=== PATIENT | male | born 1955 | race Caucasian/White ===

== ENCOUNTER → 2017-10-16 | Outpatient (CLI) | payer MEDICARE ==
--- NOTE | 2017-10-16 13:23 | XR ---
EXAMINATION TYPE: XR shoulder complete LT DATE OF EXAM: 10/16/2017 CLINICAL HISTORY: pain COMPARISON: NONE TECHNIQUE: Three views of the left shoulder are obtained. FINDINGS: There is no acute fracture/dislocation evident. The acromioclavicular and glenohumeral paul int spaces appear mildly narrowed. The visualized ribs are intact and unremarkable. IMPRESSION: 1. There is no acute fracture or dislocation. ICD 10 NO FRACTURE, INITIAL EVALUATION
--- NOTE | 2017-10-16 13:54 | XR ---
Cervical spine HISTORY: Pain 5 views of the cervical spine and 6 images There is multilevel facet arthropathy. Cervical vertebral bodies show preserved height. Anterolisthes is grade 1 C2-3, C4-5, retrolisthesis grade 1 C5-6. Spondylosis is greatest at C4-5 and C5-6 with ass ociated loss of disc height greatest at C5-6, C6-7 and C7-T1. Prevertebral soft tissues are normal. O blique views show foraminal encroachment at multiple levels bilaterally due to lateral extension of e ndplates. IMPRESSION: Degenerative disc disease, facet arthropathy, multilevel foraminal encroachment, cervical MRI may be of benefit.
== END | disposition home or self-care (01) ==
LOC: RADXRMAIN 12:37
PROVIDERS: ATTEND Family Medicine
DX: M50.30 Other cervical disc degeneration, unspecified cervical region (principal); M46.82 Other specified inflammatory spondylopathies, cervical region
CPT/HCPCS: 72050

== ENCOUNTER → 2017-12-23 | Outpatient (CLI) | payer MEDICARE ==
--- NOTE | 2017-12-23 08:00 | XR ---
EXAMINATION TYPE: XR chest 2V DATE OF EXAM: 12/23/2017 COMPARISON: CT chest June 27, 2017 HISTORY: Presurgical study TECHNIQUE: Frontal and lateral views of the chest are obtained. FINDINGS: There is no focal air space opacity, pleural effusion, or pneumothorax seen. Underlying em physematous change is present seen better on CT. The cardiac silhouette size is within normal limits. Multilevel spurring in thoracic spine is redemonstrated. Metallic anchors right humeral head level a re again seen IMPRESSION: Chronic emphysematous change without acute pulmonary process.
[2017-12-23 08:03] LABS: Basophils # (A) 0.1 k/uL (0-0.2); Basophils % (A) 1 %; Eosinophils # (A) 0.3 k/uL (0-0.7); Eosinophils % (A) 4 %; HCT 44.7 % (39.0-53.0); HGB 15.5 gm/dL (13.0-17.5); Lymphocytes # (A) 1.9 k/uL (1.0-4.8); Lymphocytes % (A) 29 %; MCH 30.6 pg (25.0-35.0); MCHC 34.6 g/dL (31.0-37.0); MCV 88.5 fL (80.0-100.0); Mean Platelet Volume 7.1; Monocytes # (A) 0.4 k/uL (0-1.0); Monocytes % (A) 7 %; Neutrophils # (A) 3.7 k/uL (1.3-7.7); Neutrophils % (A) 57 %; Platelet Count 272 k/uL (150-450); RBC 5.05 m/uL (4.30-5.90); RDW 13.1 % (11.5-15.5); WBC 6.5 k/uL (3.8-10.6)
[2017-12-23 08:09] LABS: Appearance,Urine Clear (Clear); Bilirubin,Urine Negative (Negative); Blood,Urine Negative (Negative); Color,Urine Yellow; Glucose,Urine (UA) Negative (Negative); Ketones,Urine Negative (Negative); Leukocyte Esterase,Urine Negative (Negative); Nitrite,Urine Negative (Negative); PH, Urine 5.5 (5.0-8.0); Protein,Urine Negative (Negative); Specific Gravity,Urine 1.018 (1.001-1.035); Urobilinogen,Urine <2.0 mg/dL (<2.0)
[2017-12-23 08:12] LABS: Partial Thromboplastin Time 23.5 sec (22.0-30.0); Prothrombin Time 9.8 sec (9.0-12.0)
[2017-12-23 08:32] LABS: Anion Gap 12 mmol/L; Blood Urea Nitrogen 17 mg/dL (9-20); Calcium 9.5 mg/dL (8.4-10.2); Carbon Dioxide 24 mmol/L (22-30); Chloride 104 mmol/L (98-107); Glucose 112 mg/dL (74-99); Potassium 4.4 mmol/L (3.5-5.1); Sodium 140 mmol/L (137-145)
== END | disposition home or self-care (01) ==
LOC: LABPAT 07:15
PROVIDERS: ATTEND Orthopaedic Surgery Orthopaedic Surgery of the Spine
DX: Z01.818 Encounter for other preprocedural examination (principal); M48.02 Spinal stenosis, cervical region; Z79.01 Long term (current) use of anticoagulants; Z01.812 Encounter for preprocedural laboratory examination
CPT/HCPCS: 36415; 71046; 80048; 81003; 85025; 85610; 85730; 86850; 86900; 86901

== ENCOUNTER 2017-12-31 10:32 | Inpatient (IN) | payer MEDICARE ==
[2017-12-23 11:11] VITALS: BMI 27.7
[~2017-12-31 10:32] MED LIST: BACITRACIN 50,000 UNIT, POLYMYXIN B 500,000 UNIT in SODIUM CHLORIDE 0.9% IRRIGATIO 1,00... IRRIGATION ONE; LIDOCAINE 1% 20 ML VIAL (10MG/ML) FOR IV START INTRADERMA PRN; ONDANSETRON ODT 4 MG TAB PO ONE; ceFAZolin IN SWFI 2 GM/20 ML SYRINGE IVP ONE
[2017-12-31 11:11] VITALS: RESP 16
[2017-12-31] MEDS ORDERED: ONDANSETRON 4 MG/2 ML VIAL IVP ONE (11:11)
[2017-12-31] MEDS: LACTATED RINGERS 1,000 ML IV SCH (11:11)
[2017-12-31] MEDS ORDERED: MIDAZOLAM 2 MG/2 ML VIAL ONE ×2 (12:20→13:09)
[2017-12-31] MEDS ORDERED: MIDAZOLAM 2 MG/2 ML VIAL IV ONE (12:23)
[2017-12-31] MEDS ORDERED: PROPOFOL 10 MG/ML 20 ML VIAL IV ONE (13:09)
[2017-12-31] MEDS ORDERED: fentaNYL (PF) 50 MCG/ML 2 ML AMP ONE (13:09)
[2017-12-31] MEDS ORDERED: MORPHINE SULFATE 10 MG/ML SYRINGE ONE (13:09)
[2017-12-31] MEDS ORDERED: LIDOCAINE 1% INJ 10MG/ML (20 ML MDV) ONE (13:09)
[2017-12-31] MEDS ORDERED: SUCCINYLCHOLINE CHLORIDE 100 MG/5 ML SYR IV ONE (13:09)
[2017-12-31] MEDS ORDERED: THROMBIN (BOVINE) 5,000 UNIT VIAL TOPICAL ONE (13:40)
[2017-12-31] MEDS ORDERED: GELATIN SPONGE,ABSORB (LARGE) 1 EACH SPONGE MISCELLANE ONE (13:40)
[2017-12-31] MEDS ORDERED: BUPIVACAINE-EPI 0.5%-1:200,000 10 ML VIAL SQ ONE ×2 (13:40→14:58)
[2017-12-31] MEDS ORDERED: LACTATED RINGERS 1,000 ML IV ONE (14:03)
--- NOTE | 2017-12-31 15:02 | XR ---
EXAMINATION TYPE: XR cervical spine 1V DATE OF EXAM: 12/31/2017 COMPARISON: NONE HISTORY: Intraoperative localization. TECHNIQUE: Crosstable lateral portable view FINDINGS: Localization device is noted anteriorly at the C5-6 level.
[2017-12-31] MEDS ORDERED: MAGNESIUM HYDROXIDE 2,400 MG/10 ML CUP PO PRN (15:15)
[2017-12-31] MEDS ORDERED: MORPHINE SULFATE 4 MG/ML SYRINGE IVP PRN (15:15)
[2017-12-31] MEDS ORDERED: DIAZEPAM 5 MG TAB PO PRN (15:15)
[2017-12-31] MEDS ORDERED: ONDANSETRON 4 MG/2 ML VIAL IVP PRN (15:15)
[2017-12-31] MEDS ORDERED: BENZOCAINE/MENTHOL LOZENG 1 EACH LOZENGE MUCOUS MEM PRN (15:15)
--- NOTE | 2017-12-31 15:15 | XR ---
EXAMINATION TYPE: XR cervical spine 1V DATE OF EXAM: 12/31/2017 COMPARISON: NONE HISTORY: ANTERIOR CERVICAL FUSION TECHNIQUE: Crosstable lateral portable view obtained. FINDINGS: Anterior fixation plate partially imaged noted at the C5-6 level. Alignment appears to be a natomic.
--- NOTE | 2017-12-31 15:22 | P.OP ---
Date of Procedure: 12/31/17 Preoperative Diagnosis: Cervical myelopathy, cervical stenosis C5 6 C6 7, herniated nucleus pulposis C5 6 C6 7, upper extremity radiculopathy, left upper extremity weakness Postoperative Diagnosis: Same Anesthesia: GETA Pathology: none sent Condition: stable Disposition: PACU Description of Procedure: BRIEF OPERATIVE NOTE Preoperative Diagnosis: Cervical myelopathy, cervical stenosis C5 6 C6 7, degenerative disc disease, upper extremity radiculopathy, left upper extremity weakness Postoperative Diagnosis: Same Procedure: Anterior cervical decompression with discectomy and fusion C5 6 C6 7 Placement of interbody graft C5 6 C6 7 Application of anterior cervical plate C5 6 7 Surgeon: Dr. Rodriguez Ordained Minister: John PACK who is present throughout the entire the case persistence during positioning, dissection, exposure, visualization, and all crucial elements of the case as well as closure. Anesthesia: General anesthesia per Dr. Dominguez Estimated blood loss: Approximately 200 mL Complications: None apparent Components implanted: K2M Valeria ridge anterior cervical plate system with screws, Vikos interbody allograft bone graft with 1 mL of DBX bone putty to the bone graft Disposition: To recovery room in good stable condition. OPERATIVE INDICATIONS The patient has had long-standing issues in their neck and upper extremities. His found have severe stenosis at his cervical spine particularly at C5 6 and C6 7 with severe disc degeneration. He was having evidence of early cervical myelopathy and weakness at his left upper extremity with radiculopathy the correlated well with his neck and upper extremity symptoms. The patient has been through conservative treatment. He is not having any benefit despite conservative care. We discussed various treatment options including surgery, and the patient wishes to proceed with surgery We discussed the risk, patient's alternatives and benefits of surgery including but not limited to, risk of bleeding risk of infection, risk of need for further surgery, risk of decreased , loss of motion, muscle function, malunion nonunion, hardware failure, nerve damage, paralysis, heart attack, and . OPERATIVE SUMMARY After discussing all the risks, patient alternatives and benefits at length, the patient elected to proceed with surgical intervention, signed informed consent, and presented for their procedure. The patient was seen and examined in the preoperative holding area and the surgical site was marked. The patient was given antibiotics and brought to the operating room. The patient was positioned on the operating room table in a supine position being careful to pad any bony prominences and pressure points. The patient was sedated and intubated by anesthesia in standard fashion. Once the airway and C- spine were stabilized the patient's arms were padded and tucked at her side, with her shoulders gently taped. The head was placed in a donut pad with the neck in good neutral alignment and position. We were careful to maintain the patient's cervical spine and good neutral alignment and position throughout. The patient was prepped and draped in a normal standard fashion. An appropriate timeout and keystone protocol performed. We were able to proceed with the surgery. The local wound area was infiltrated with local anesthetic. An incision was made transversely approximately 2-1/2 cm over the appropriate levels at C6. Dissection was taken down subcutaneously to the level of the platysma which was split in line with its fibers. Dissection was taken with a carotid approach, with the trachea and esophagus medial and the carotid sheath laterally. We dissected down to the anterior surface of the vertebral bodies of C5 6 and 7. Intraoperative x-ray was taken which showed a marker at the appropriate level of C5 6 and 7. With the appropriate level positively confirmed, we were able to proceed with discectomy at the appropriate levels. All of the operative levels were exposed appropriately. There are very large anterior cervical osteophytes at C5 6 and C6 7. These were removed accommodation of rongeurs and high-speed bur. The patient had all their twitches back, and there was no evidence of recurrent laryngeal issue. The wound was copiously irrigated and suctioned dry as had been done periodically throughout the case. At the appropriate level/levels, starting at C5 6 and then moving to C6 7 I established an annulotomy with an 11 blade scalpel. A discectomy was performed with a combination of pituitary rongeurs, curettes, a high-speed bur, and Kerrison rongeurs. The posterior longitudinal ligament was taken down as were any posterior osteophytes. Note was made of significant central and bilateral foraminal stenosis which was remedied with the decompression This gave good central and bilateral foraminal decompression. There is no evidence of any dural tear or leak. The endplates were prepared with a high-speed bur. With the endplates in good parallel position, I was able to size for the appropriate size interbody graft. The wound was irrigated and suctioned dry the graft was prepared and malleted into position. It had good alignment and position with the anterior surface flush with the anterior surface of the vertebral bodies. This was done similarly the appropriate levels first at C5 6 and then at C6 7. With the grafts intact, I was able to measure and contour and appropriate sized plate. The plate was positioned at the midline over the appropriate levels at C5 6 and 7. Screw holes were established with a hand drill and drill guide. Screws were placed in good alignment and position with excellent bony purchase. They were seated under the locking device. The construct was checked and found to be stable. Intraoperative x-ray was taken which showed good alignment and position of the implants at the appropriate levels at C5 6 and 7. There was no evidence of any dural tear or leak. Good hemostasis was maintained. The wound was copiously irrigated and suctioned dry as had been done periodically throughout the case. The platysma was closed with absorbable suture. The subcutaneous tissue was closed. The subcuticular tissue was closed with absorbable suture. The wound was cleaned and dried and dressed appropriately. A soft cervical collar was placed appropriately. The patient was woken up by anesthesia, extubated, transferred back gently to their hospital bed and brought to the recovery room in good stable condition. The patient will be admitted to the hospital for appropriate postoperative care , medical management and monitoring. We will continue to follow them closely about the postoperative course.
[2017-12-31] MEDS: MORPHINE SULFATE 2 MG/ML SYRINGE IV PRN ×4 (15:45→16:14)
[2017-12-31] MEDS: SODIUM CHLORIDE 0.9% 1,000 ML IV SCH (20:59)
[2017-12-31] MEDS: HYDROcodone/APAP 5-325MG 1 EACH TAB PO PRN (20:59)
[2017-12-31] MEDS: METOPROLOL TARTRATE 12.5 MG TAB PO SCH (22:13)
[2017-12-31] MEDS: MORPHINE SULFATE 4 MG/ML SYRINGE IVP PRN (22:18)
[2018-01-01] MEDS: MORPHINE SULFATE 4 MG/ML SYRINGE IVP PRN (03:34)
[2018-01-01] MEDS: SODIUM CHLORIDE 0.9% 1,000 ML IV SCH (04:43)
[2018-01-01] MEDS: LACTATED RINGERS 1,000 ML IV SCH (08:57)
[2018-01-01] MEDS ORDERED: ASPIRIN 81 MG PO SCH (09:00)
[2018-01-01] MEDS ORDERED: SENNOSIDES-DOCUSATE SODIUM 1 EACH TAB PO SCH ×2 (09:00)
[2018-01-01] MEDS ORDERED: ATORVASTATIN 20 MG TAB PO SCH (09:00)
[2018-01-01] MEDS: METOPROLOL TARTRATE 12.5 MG TAB PO SCH (09:06)
[2018-01-01] MEDS: HYDROcodone/APAP 5-325MG 1 EACH TAB PO PRN (09:07)
[2018-01-01 09:17] VITALS: BP 119/69; PULSE 68; TEMP 98.3
--- NOTE | 2018-01-01 09:20 | P.DS ---
Providers Date of admission: 12/31/17 10:32 Attending physician: Torres Rodriguez Primary care physician: [facility] Course: The patient presented on the day of admission as per his operative note. He has cervical myelopathy and upper extremity radiculopathy with weakness of the left upper extremity and he feels that his left upper extremity is doing somewhat better already with his surgery. He is postoperative day #1 from his anterior cervical discectomy and fusion at C5 6 and C6 7 for his cervical stenosis with the above. Physical Exam The incision site is clean dry and intact. There is no erythema no drainage. There is no purulence no evidence of infection. His neck incision site is clear and his neck is soft and supple Abdomen soft and nontender. Chest has good excursion with deep inspiration and expiration. The patient has active and passive range of motion intact at the upper and lower extremities. There is no acute change in neurologic status. His left lower extremity still has some weakness but he is moving his arm well without any obvious change Hospital Course Postoperative day #1 status post anterior cervical decompression and fusion at C5 6 and C6 7 for his cervical stenosis with cervical myelopathy degenerative disc disease and upper extremity radiculopathy with weakness. The patient is doing well postoperatively. The patient has been making good progress postoperatively. I felt we had to have him inpatient in regards to his myelopathy with extensive disc degeneration and stenosis as well as his hypertension and dyslipidemia to be managed medically. It was not certain how his pain were able to be controlled and we're fortunate that he is making good progress in terms of his overall pain control and function this morning. He had extensive disease at his neck and we also unsure if he was going to be able to swallow her tolerate an oral diet postoperatively. But this morning He is doing well with this. They have completed the prophylactic antibiotics without any signs or symptoms of infection. The patient has been able to advance their diet, and is tolerating diet adequately. The pain was initially controlled with IV medications and is now controlled appropriately with oral medications. The patient has been able to increase their mobilization. The patient has progressed appropriately. I think they are in good stable condition for discharge today. They will be sent home with appropriate prescriptions. I answered their questions to the best of my ability in a language that they can understand and they are agreeable with the plan. They will follow up as directed in approximately 2 weeks or sooner if he is having problems. Patient Condition at Discharge: Good Plan - Discharge Summary Discharge Rx Participant: Yes New Discharge Prescriptions: New HYDROcodone/APAP 5-325MG [[place] 5] 1 each PO Q6HR PRN #90 tab PRN Reason: Pain No Action Metoprolol Tartrate [Lopressor] 12.5 mg PO BID Atorvastatin [Lipitor] 20 mg PO DAILY Aspirin 81 mg PO DAILY Discharge Medication List Aspirin 81 mg PO DAILY 12/23/17 [History] Atorvastatin [Lipitor] 20 mg PO DAILY 12/23/17 [History] Metoprolol Tartrate [Lopressor] 12.5 mg PO BID 12/23/17 [History] HYDROcodone/APAP 5-325MG [[place] 5] 1 each PO Q6HR PRN #90 tab 01/01/18 [Rx] Follow up Appointment(s)/Referral(s): Torres Rodriguez DO [Doctor of Osteopathic Medicine] - 2 Weeks Patient Instructions/Handouts: *Surgery [facility] - ([facility]) Cervical Surgery Discharge Instructions Activity/Diet/Wound Care/Special Instructions: May shower with waterproof Tegaderm intact. Do not soak in a tub. On Friday the patient may shower with area uncovered, but leave Steri-Strips intact and allow them to fray off on their own. Avoid heavy or rigorous activity. No repetitive bending twisting or lifting. No significant overhead work. May ambulate to tolerance. May ride in a car Okay to walk outside and up and down stairs Discharge Disposition: HOME SELF-CARE
[2018-01-01] MEDS ORDERED: HYDROmorphone 4 MG TABLET PO PRN (09:22)
[2018-01-01] MEDS ORDERED: HYDROmorphone 2 MG TAB PO PRN (09:22)
== END 2018-01-01 12:00 | disposition home or self-care (01) | DRG 472 ==
LOC: 2ORMAIN 10:32 → 3SUR 15:22
PROVIDERS: ADMIT Orthopaedic Surgery Orthopaedic Surgery of the Spine; ATTEND Orthopaedic Surgery Orthopaedic Surgery of the Spine
PROC: 0RT30ZZ Resection of Cervical Vertebral Disc, Open Approach (ICD-10-PCS; principal; 2017-12-31 12:15)
PROC: 0RG10A0 Fusion of Cervical Vertebral Joint with Interbody Fusion Device, Anterior Approach, Anterior Column, Open Approach (ICD-10-PCS; principal; 2017-12-31 12:15)
PROC: 0RT50ZZ Resection of Cervicothoracic Vertebral Disc, Open Approach (ICD-10-PCS; principal; 2017-12-31 12:15)
PROC: 0RG40A0 Fusion of Cervicothoracic Vertebral Joint with Interbody Fusion Device, Anterior Approach, Anterior Column, Open Approach (ICD-10-PCS; principal; 2017-12-31 12:15)
DX: M48.02 Spinal stenosis, cervical region (principal); M50.03 Cervical disc disorder with myelopathy, cervicothoracic region; M54.12 Radiculopathy, cervical region; E78.5 Hyperlipidemia, unspecified; I10 Essential (primary) hypertension; Z85.46 Personal history of malignant neoplasm of prostate; Z92.3 Personal history of irradiation; Z85.828 Personal history of other malignant neoplasm of skin; Z96.649 Presence of unspecified artificial hip joint; E03.9 Hypothyroidism, unspecified; Z82.3 Family history of stroke; Z82.49 Family history of ischemic heart disease and other diseases of the circulatory system; Z79.890 Hormone replacement therapy; Z90.79 Acquired absence of other genital organ(s)
CPT/HCPCS: 72020; 86850; 86900; 86901

== ENCOUNTER → 2019-10-27 | Outpatient (CLI) | payer MEDICARE ==
--- NOTE | 2019-10-27 17:07 | XR ---
EXAMINATION TYPE: XR Hip Complete RT DATE OF EXAM: 10/27/2019 COMPARISON: None HISTORY: Pain and bruising from fall TECHNIQUE: 2 view right hip FINDINGS: Femoral component is present. Acetabular component is present. Femoral component articulate s with the acetabular component. No acute fractures are evident. IMPRESSION: 1. No acute fractures post trauma.
== END | disposition home or self-care (01) ==
LOC: RADXRMAIN 14:07
PROVIDERS: ATTEND Family Medicine
DX: M25.551 Pain in right hip (principal)
CPT/HCPCS: 73502

== ENCOUNTER → 2021-06-29 | Outpatient (CLI) | payer MEDICARE ==
--- NOTE | 2021-06-29 15:16 | XR ---
EXAMINATION TYPE: XR cervical spine comp DATE OF EXAM: 06/29/2021 COMPARISON: 12/31/2017 HISTORY: 66-year-old male C5-C6 posterior fusion, neck pain radiating to the shoulders. TECHNIQUE: 6 views FINDINGS: No predental space widening or prevertebral soft tissue swelling. Post surgical change of C5-C7 ACDF. There appears to be grade 1 anterolisthesis above the fusion at C 4-C5 with associated hypertrophic facet arthropathy. Mild degenerative disc disease here. On the left, changes result in moderate to severe bony neural foraminal narrowing at C3-C4 and C4-C5. Moderate at C7-T1. On the right, changes result in moderate bony neuroforaminal narrowing at C2-C3 and C4-C5, mild at C7 -T1. Normal odontoid view. IMPRESSION: 1. Advanced hypertrophic facet and uncovertebral joint arthropathy above the C5-C7 ACDF with grade 1 anterolisthesis. 2. The oblique images suggest moderate to severe bony neural foraminal narrowing on the left at C3-C4 and C4-C5. Moderate on the left at C7-T1 and on the right at C2-C3 and C4-C5.
== END | disposition home or self-care (01) ==
LOC: RADXRMAIN 11:46
PROVIDERS: ATTEND Family Medicine
DX: M43.22 Fusion of spine, cervical region (principal)
CPT/HCPCS: 72050

== ENCOUNTER 2021-08-16 08:02 | Day surgery (SDC) | payer MEDICARE ==
[2021-08-14 11:59] VITALS: BMI 26.9
[~2021-08-16 08:02] MED LIST changes: -BACITRACIN 50,000 UNIT, POLYMYXIN B 500,000 UNIT in SODIUM CHLORIDE 0.9% IRRIGATIO 1,00... IRRIGATION ONE; +LACTATED RINGERS 1,000 ML IV SCH; +LIDOCAINE 1% (10MG/ML) FOR IV START INTRADERMA PRN; -LIDOCAINE 1% 20 ML VIAL (10MG/ML) FOR IV START INTRADERMA PRN; -ONDANSETRON ODT 4 MG TAB PO ONE; -ceFAZolin IN SWFI 2 GM/20 ML SYRINGE IVP ONE
[2021-08-16 08:25] VITALS: RESP 16; TEMP 97.6
[2021-08-16] MEDS ORDERED: PROPOFOL 10 MG/ML 20 ML VIAL IV ONE (09:20)
--- NOTE | 2021-08-16 09:22 | P.GSHP ---
History of Present Illness H&P Date: 08/16/21 Chief Complaint: Screening colonoscopy This a 66-year-old male presents today for screening colonoscopy. Patient denies any significant GI complaints. Past Medical History Past Medical History: Hyperlipidemia, Hypertension, Musculoskeletal Disorder, Osteoarthritis (OA) Additional Past Medical History / Comment(s): numbness, weakness left arm & hand, bicuspid aortic valve per pt. History of Any Multi-Drug Resistant Organisms: None Reported Past Surgical History: Joint Replacement, Orthopedic Surgery Additional Past Surgical History / Comment(s): manuelito hips replaced, right shoulder surg., right knee surg., cervical fusion, COLONOSCOPY Past Anesthesia/Blood Transfusion Reactions: No Reported Reaction Additional Past Anesthesia/Blood Transfusion Reaction / Comment(s): claustrophobic Smoking Status: Former smoker - Past Family History Father Additional Family Medical History / Comment(s): mesothelioma Medications and Allergies Home Medications Medication Instructions Recorded Confirmed Type Aspirin 81 mg PO DAILY 12/23/17 08/16/21 History Atorvastatin [Lipitor] 20 mg PO DAILY 12/23/17 08/16/21 History Metoprolol Tartrate [Lopressor] 12.5 mg PO BID 12/23/17 08/16/21 History Allergies Allergy/AdvReac Type Severity Reaction Status Date / Time No Known Allergies Allergy Verified 08/14/21 11:51 Surgical - Exam Vital Signs Temp Pulse Resp BP Pulse Ox 97.6 F 70 16 152/77 96 08/16/21 08:23 08/16/21 08:23 08/16/21 08:23 08/16/21 08:23 08/16/21 08:23 - General well developed, well nourished, no distress - Eyes PERRL - ENT normal pinna - Neck no masses - Respiratory normal expansion - Cardiovascular Rhythm: regular - Abdomen Abdomen: soft, non tender Assessment and Plan Assessment: We'll perform screening colonoscopy.
--- NOTE | 2021-08-16 09:35 | P.OP ---
Date of Procedure: 08/16/21 Preoperative Diagnosis: Screening colonoscopy Postoperative Diagnosis: Normal colonoscopy Procedure(s) Performed: Colonoscopy Anesthesia: MAC Surgeon: Teofilo Gonsales Pathology: none sent Condition: stable Disposition: PACU Description of Procedure: PROCEDURE: The patient was placed on the endoscopy table in the lateral position. Digital rectal examination was performed which revealed no abnormalities. The prostate was symmetrical without nodules. Flexible colonoscope was then placed in the patient's anus and passed throughout the entire colon. The ileocecal valve was visualized. The cecum, ascending, transverse, descending and sigmoid colon were normal. The rectum was normal as well. There were no masses, polyps or diverticula noted in the entire colon. SUMMARY OF FINDINGS: Normal colonoscopy.
[2021-08-16 09:56] VITALS: BP 113/54; PULSE 70
== END 2021-08-16 10:18 | disposition home or self-care (01) ==
LOC: ORWHC2ENDO 08:02
PROVIDERS: ATTEND Surgery
DX: Z12.11 Encounter for screening for malignant neoplasm of colon (principal); E78.5 Hyperlipidemia, unspecified; I10 Essential (primary) hypertension; M19.90 Unspecified osteoarthritis, unspecified site; Q23.1 Congenital insufficiency of aortic valve; Z87.891 Personal history of nicotine dependence; Z79.82 Long term (current) use of aspirin; Z79.899 Other long term (current) drug therapy
CPT/HCPCS: J2704; G0121; 45378